=== PATIENT | male | born 1955 | race Caucasian/White ===

== ENCOUNTER 2018-01-23 10:37 | Emergency (ER) | payer BC, OTHER ==
[2018-01-23] MEDS: NS 1,000 ML IV (12:00)
[2018-01-23 12:18] LABS: INR 1.06; PROTHROMBIN TIME 13.9 SECONDS (12.1-14.4)
[2018-01-23 12:19] LABS: PARTIAL THROMBOPLASTIN TIME 31.7 SECONDS (25.4-37.6)
== END 2018-01-23 12:42 | disposition short-term general hospital (02) ==
LOC: M ED 10:37
DX: I61.4 Nontraumatic intracerebral hemorrhage in cerebellum (principal); R91.8 Other nonspecific abnormal finding of lung field
CPT/HCPCS: 70450

== ENCOUNTER → 2018-01-29 | Outpatient (REF) | payer BC ==
[2018-01-29 14:07] LABS: INR 1.04; PROTHROMBIN TIME 13.7 SECONDS (12.1-14.4)
[2018-01-29 14:08] LABS: PARTIAL THROMBOPLASTIN TIME 31.1 SECONDS (25.4-37.6)
== END ==
LOC: M LAB REF 13:00
DX: R91.1 Solitary pulmonary nodule (principal); C79.31 Secondary malignant neoplasm of brain
CPT/HCPCS: 85610

== ENCOUNTER 2018-02-06 20:02 | Emergency (ER) | payer BC ==
[2018-02-06] MEDS: GASTROGRAFIN SOLUTION 30ML PO ×2 (22:05→22:45)
[2018-02-06] MEDS: MORPHINE 4 MG/ML 1ML VIAL/SYRINGE (J2270) IV (22:05)
[2018-02-06] MEDS: ONDANSETRON 4MG/2ML VIAL (J2405) IV (22:05)
[2018-02-06] MEDS: NS 1,000 ML IV (22:06)
[2018-02-06 22:13] LABS: ALBUMIN 2.6 GM/DL (3.2-5.2); ALBUMIN/GLOBULIN RATIO 0.65 (1.00-1.93); ALKALINE PHOSPHATASE 73 U/L (45-117); ALT/SGPT 16 U/L (12-78); ANION GAP 9 MEQ/L (8-16); AST/SGOT 10 U/L (7-37); BILIRUBIN,DIRECT 0.1 MG/DL (0.0-0.2); BILIRUBIN,TOTAL 0.5 MG/DL (0.2-1.0); BLOOD UREA NITROGEN 17 MG/DL (7-18); CALCIUM LEVEL 8.7 MG/DL (8.8-10.2); CARBON DIOXIDE LEVEL 31 MEQ/L (21-32); CHLORIDE LEVEL 93 MEQ/L (98-107); CREATININE FOR GFR 0.74 MG/DL (0.70-1.30); GLOMERULAR FILTRATION RATE > 60.0 (>49); GLUCOSE, FASTING 271 MG/DL (70-100); LIPASE 4785 U/L (73-393); POTASSIUM SERUM 4.4 MEQ/L (3.5-5.1); SODIUM LEVEL 133 MEQ/L (136-145); TOTAL PROTEIN 6.6 GM/DL (6.4-8.2)
[2018-02-06 22:16] LABS: BASO % 0.1 % (0.0-1.0); EOS # 0.2 10^3/uL (0.0-0.50); EOS % 0.5 % (0.0-3.0); HEMATOCRIT 43.7 % (42.0-52.0); IMMATURE GRANULOCYTE % 0.9 % (0-3.0); LYMPH % 3.3 % (24.0-44.0); MEAN CORPUSCULAR HEMOGLOBIN 31.4 pg (27.0-33.0); MEAN CORPUSCULAR HGB CONC 34.3 g/dl (32.0-36.5); MEAN CORPUSCULAR VOLUME 91.4 fl (80.0-96.0); MONO % 6.6 % (0.0-5.0); NEUTROPHILS % 88.6 % (36.0-66.0); PLATELET COUNT, AUTOMATED 488 10^3/uL (150-450); RED BLOOD COUNT 4.78 10^6/uL (4.30-6.10); WHITE BLOOD COUNT 29.7 10^3/uL (4.0-10.0)
[2018-02-06 22:21] LABS: NEUTROPHILS # 26.3 10^3/uL (1.8-7.7)
[2018-02-06 22:22] LABS: POSITIVE DIFF POS FLAG
[2018-02-06] MEDS ORDERED: ISOVUE-370 76% 100ML VIAL (Q9967) As Ordered (23:15)
== END 2018-02-07 02:37 | disposition short-term general hospital (02) ==
LOC: M ED 02-07 02:37
DX: K85.90 Acute pancreatitis without necrosis or infection, unspecified (principal); Z85.89 Personal history of malignant neoplasm of other organs and systems; F17.210 Nicotine dependence, cigarettes, uncomplicated
CPT/HCPCS: J2270